=== PATIENT | female | born 1985 | race African-American/Black ===

== ENCOUNTER 2022-09-13 11:53 | Emergency (ER) | payer MEDICARE, OTHER ==
[~2022-09-13] VITALS: Ht 172.7 cm; Wt 90.0 kg
[2022-09-13 14:39] LABS: BASOPHILS % 0.2 % (0.0-2.0); HEMATOCRIT. 43.2 % (36.0-48.0); HEMOGLOBIN. 14.7 g/dL (12.0-16.0); LYMPHOCYTES % 10.5 % (20.0-50.0); MEAN CORPUSCULAR HEMOGLOBIN 31.5 pg (28.0-32.0); MEAN CORPUSCULAR VOLUME 92.5 fL (81.0-99.0); MEAN PLATELET VOLUME 9.2 fl (7.4-10.4); MONOCYTES % 5.5 % (2.0-8.0); NEUTROPHILS % 83.8 % (40.0-76.0); PLATELET 207 x1000/uL (130-400); RED BLOOD CELL COUNT 4.67 mill/uL (4.2-5.4); RED CELL DISTRIBUTION WIDTH 14.1 % (11.6-14.6)
[2022-09-13 14:46] LABS: CHLORIDE 101 mEq/L (98-107)
[2022-09-13 14:56] LABS: CLARITY URINE CLOUDY (CLEAR); COLOR URINE YELLOW (YELLOW); KETONES URINE NEGATIVE (NEGATIVE); LEUKOCYTE ESTERASE URINE NEGATIVE (NEGATIVE); NITRITE URINE NEGATIVE (NEGATIVE); OCCULT BLOOD URINE NEGATIVE (NEGATIVE); PH URINE 6.5 (4.5-8.0); PROTEIN URINE NEGATIVE (NEGATIVE); SPECIFIC GRAVITY URINE 1.007 (1.005-1.030); UROBILINOGEN URINE 0.2 E.U./dL (0.2-1.0)
[2022-09-13 14:57] LABS: HCG SCREEN NEGATIVE
[2022-09-13 14:59] LABS: ETHANOL BLOOD 26 mg/dL
[2022-09-13 16:20] VITALS: BP 161/108
[2022-09-13] MEDS ORDERED: CHLORDIAZEPOXIDE 25MG CAPSULE PO ONE (17:45)
== END 2022-09-13 18:12 | disposition home or self-care (01) ==
LOC: ER 11:53
DX: R10.13 Epigastric pain (principal); Z90.49 Acquired absence of other specified parts of digestive tract
CPT/HCPCS: 36415; 71045; 74176; 80053; 80320; 81003; 81025; 84703; 85025; 99285; G0480

== ENCOUNTER 2024-01-01 19:48 | Emergency (ER) | payer MEDICARE, MEDICAID ==
[~2024-01-01] VITALS: Ht 170.2 cm; Wt 121.0 kg
[2024-01-01 19:54] VITALS: O2SAT 98
[2024-01-01] MEDS ORDERED: METH-653 MT (20:41)
[2024-01-01] MEDS: METHOCARBAMOL 500MG TABLET PO ONE (20:49)
[2024-01-01 21:58] VITALS: BP 150/83; PULSE 76; RESP 18; TEMP 98.3
== END 2024-01-01 22:02 | disposition home or self-care (01) ==
LOC: ER 19:48
DX: S13.4XXA Sprain of ligaments of cervical spine, initial encounter (principal); F41.9 Anxiety disorder, unspecified; F32.9 Major depressive disorder, single episode, unspecified; V49.49XA Driver injured in collision with other motor vehicles in traffic accident, initial encounter; Y93.89 Activity, other specified; Y92.89 Other specified places as the place of occurrence of the external cause; Y99.8 Other external cause status
CPT/HCPCS: 99283